=== PATIENT | female | born 1975 | race Caucasian/White ===

== ENCOUNTER 2017-04-18 21:22 | Emergency (ER) | payer BC ==
[~2017-04-18] VITALS: Ht 162.6 cm; Wt 72.6 kg
[2017-04-18 21:31] VITALS: BP 142/78
--- NOTE | 2017-04-18 21:40 | NUR ---
PT TAKEN TO BED 6
--- NOTE | 2017-04-18 22:09 | NUR ---
Dr. Roche evaluating patient at bedside.
--- NOTE | 2017-04-18 22:30 | NUR ---
PT STRAIGHT CATH. 1000ML CLEAR YELOW URINE REMOVED. UA SPECIMAMEN OPTAINED. PT STATES FEELS MUCH BETTER PRESSURE RELIVED.
--- NOTE | 2017-04-18 23:38 | NUR ---
PT VOID AGAIN ON HER OWN. WITH OUT PAIN OR DISTREESS. STATES SHE FEELS MUCH BETTER.
--- NOTE | 2017-04-19 00:01 | NUR ---
PT STATES SHE FEELS FINE. WANTS TO GO HOME.
[2017-04-19 00:05] VITALS: BP 136/70
--- NOTE | 2017-04-19 00:25 | NUR ---
Patient discharged with v/s stable. Written and verbal after care instructions given and explained. Patient verbalized understanding. Ambulatory with steady gait. All questions addressed prior to discharge. Advised to follow up with PMD.
== END 2017-04-19 00:25 | disposition home or self-care (01) ==
LOC: MED 21:22
DX: O26.891 Other specified pregnancy related conditions, first trimester (principal); R33.9 Retention of urine, unspecified; Z3A.01 Less than 8 weeks gestation of pregnancy
CPT/HCPCS: 81002; 81025; 99283